=== PATIENT | male | born 1970 | race Caucasian/White ===

== ENCOUNTER 2017-01-07 07:53 | Day surgery (SDC) | payer OTHER, BC ==
[2016-12-27 20:01] LABS: HEMOGLOBIN 15.9 g/dL (13.6-17.8)
[2016-12-27 20:03] LABS: HEMATOCRIT 47.2 % (40.0-51.0)
[2016-12-27 20:15] LABS: ASCORBIC ACID (UR NOT ORDER) NEG (NEG); BILIRUBIN, URINE NEGATIVE (NEG); KETONE, URINE NEGATIVE (NEG); LEUKOCYTE ESTERASE(NOT OR NEG (NEG); WBC (NOT ORDERED) (RFLEX) < 1 (0-5)
[2016-12-27 20:25] LABS: CALCIUM, SERUM 9.3 MG/DL (8.5-10.4); CHLORIDE, SERUM 106 MMOL/L (96-112); CO2 (CARBON DIOXIDE) 26 MMOL/L (24-34); GFR AFRICAN AMERICAN 104 ML/MIN (>=60); GFR NON AFRICAN AMERICAN 90 ML/MIN (>=60); GLUCOSE, SERUM 176 MG/DL (60-99); SODIUM, SERUM 143 MMOL/L (135-148)
[2016-12-27 20:26] LABS: BUN (BLOOD UREA NITROGEN) 22 MG/DL (6-23)
--- NOTE | ~2017-01-07 | OP ---
Record Of Operation [facility] [address] [place]. [address] NAME: RADHA RICHTER : 70 STATUS : [place] [facility] [place] PAT#: [id number] AGE: 46 ADM/REG DATE : 01/07/17 MR#: [id number] REPORT SERV DATE: 01/07/17 DICTATED BY: RAF BARRETT DATE: 01/07/17 REPORT STATUS : Draft TRANSCRIBED BY: CHELSEYL DATE: 01/07/17 DATE OF PROCEDURE: 01/07/2017 SURGEON: Raf Barrett MD. TITLE OF OPERATION: Modified sleeve circumcision. PREOPERATIVE DIAGNOSIS: Phimosis. POSTOPERATIVE DIAGNOSIS: Phimosis. INDICATIONS: Mr. Richter is a 46-year-old male, with symptomatic phimosis. He is here for a circumcision. ANESTHESIA: General. COMPLICATIONS: None. IMPLANTS: None. SPECIMENS: Foreskin for analysis. NARRATIVE: The patient was brought to the operating room, identified by his wristband. General anesthesia was induced and vancomycin was given for preoperative antibiotics. He was placed in the supine position, prepped and draped in sterile fashion. A 3-0 Prolene was placed to the patient's glans with a marking suture. A circumferential incision was made approximately 2 cm beneath the glans penis. Next, the foreskin was restored to its normal position and a second circumferential incision was made on the shaft of the penis where the penile skin would reapproximate nicely. The excess foreskin was then removed with electrocautery. Hemostasis was obtained with electrocautery. The median raphe was then lined up with a 4-0 Vicryl suture. The dorsal aspect of the incision was closed with a running 4-0 Vicryl suture. The ventral aspect was closed with interrupted 4-0 Vicryl suture. There was no bleeding. The cosmetic appearance was good. A Xeroform, Kerlix, and Coban dressing was placed. Bacitracin was placed over the glans. The patient was awoken from anesthesia and transferred to the recovery room in stable condition. I will see him back in a month. BILL/WILL Raf Barrett MD / [id number] Record Of Operation [address] [address] NAME: RADHA RICHTER : 70 STATUS : [place] [facility] [place] PAT#: [id number] AGE: 46 ADM/REG DATE : 01/07/17 MR#: [id number] REPORT SERV DATE: 01/07/17 DICTATED BY: RAF BARRETT DATE: 01/07/17 REPORT STATUS : Draft TRANSCRIBED BY: WILL DATE: 01/07/17 CC: MD Jonathan Slater MD
[~2017-01-07 07:53] MED LIST: ACTOS30 PO; AMOXIL500 MG PO; ASAB PO; AVAPRO300 MG PO; BENICAR HCT1 TA2 PO; BYSTOLIC5 MG PO; CRESTOR10 PO; ELIQUIS 5 MG TAB5 MG PO; FARXIGA10 PO; GLUCOPHAGE1000 MG PO; GLUCOTRO10 PO; L20 PO; MICRO-K10 MEQ PO; MULTIVITAMI1 PO; NEXIUM40 PO; TRESIBA FL200 UNIT/1 SQ; VITAMIN C1000 MG PO; VITAMIN E PO; [UNRECOGNIZED DRUG - OTHER] SQ
== END 2017-01-07 14:00 | disposition home or self-care (01) ==
LOC: SDC 07:53
PROVIDERS: Urology
PROC: 0VTTXZZ Resection of Prepuce, External Approach (ICD-10-PCS; principal; 2017-01-07 09:30)
DX: N47.1 Phimosis (principal); Z95.0 Presence of cardiac pacemaker; I10 Essential (primary) hypertension; K21.9 Gastro-esophageal reflux disease without esophagitis; G47.33 Obstructive sleep apnea (adult) (pediatric); Z88.8 Allergy status to other drugs, medicaments and biological substances; E11.9 Type 2 diabetes mellitus without complications; Z98.890 Other specified postprocedural states; Z86.718 Personal history of other venous thrombosis and embolism; Z79.01 Long term (current) use of anticoagulants; Z79.82 Long term (current) use of aspirin; Z79.84 Long term (current) use of oral hypoglycemic drugs; Z79.899 Other long term (current) drug therapy
CPT/HCPCS: 36415; 80048; 81001; 82962; 85014; 85018; 88304; 93005; A9270-GY; J0690; J2250; J2405; J3010